=== PATIENT | female | born 1975 | race Two or more races ===

== ENCOUNTER 2024-05-07 05:33 | Inpatient (IN) | payer BC ==
[2024-05-03 07:49] VITALS: BMI 27.1
[2024-05-07] MEDS ORDERED: MIDAZOLAM HCL 2 MG/2 ML SINGLE DOSE VIAL ONE (10:54)
[2024-05-07] MEDS ORDERED: PROPOFOL 20 ML ONE (10:54)
[2024-05-07] MEDS ORDERED: ROCURONIUM BROMIDE 50 MG/5 ML SYRINGE ONE ×2 (10:54→11:58)
[2024-05-07] MEDS ORDERED: ceFAZolin SODIUM 1 GM VIAL ONE (11:23)
[2024-05-07] MEDS: ceFAZolin SODIUM 1 GM VIAL IVPB ONE (11:28)
[2024-05-07] MEDS ORDERED: TRANEXAMIC ACID 1000 MG/10 ML VIAL ONE (11:29)
[2024-05-07] MEDS ORDERED: ONDANSETRON 4 MG/2 ML VIAL ONE ×3 (11:35→14:58)
[2024-05-07] MEDS ORDERED: DEXAMETHASONE SOD PHOSPHATE 4 MG/1 ML VIAL ONE (11:35)
[2024-05-07] MEDS ORDERED: HYDROmorphone HCl 2 MG/ML VIAL ONE (12:04)
[2024-05-07] MEDS ORDERED: NEOSTIGMINE METHYLSULFATE 0.5 MG/1 ML - 10 ML MDV ONE (12:44)
[2024-05-07] MEDS ORDERED: GLYCOPYRROLATE 0.2 MG/1 ML VIAL ONE (12:45)
[2024-05-07] MEDS ORDERED: KETOROLAC TROMETHAMINE 30 MG/1 ML VIAL ONE (13:11)
[2024-05-07] MEDS: LACTATED RINGERS SOLUTION 1,000 ML IV SCH (14:08)
[2024-05-07] MEDS: CEFAZOLIN 2 GM in DEXTROSE 5%-WATER - 100 ML IVPB ONE (14:42)
[2024-05-07] MEDS: TRANEXAMIC ACID 1000 MG/10 ML VIAL IVPUSH ONE (14:42)
[2024-05-07] MEDS: ONDANSETRON 4 MG/2 ML VIAL IVPUSH PRN ×2 (15:00→18:44)
[2024-05-07] MEDS: CEFAZOLIN SODIUM 2 GM in DEXTROSE 5%-WATER 100 ML IVPB SCH (17:55)
[2024-05-07] MEDS ORDERED: CEFAZOLIN 2 GM/D5W 2 GM/50 ML ML IVPB SCH (18:00)
[2024-05-07] MEDS: ACETAMINOPHEN 500 MG TABLET (FP) PO PRN (22:41)
[2024-05-08 07:45] LABS: BASO % 0.1 % (0-2.0); EOS % 0.1 % (0-4.5); HEMATOCRIT 35.2 % (32.4-45.2); HEMOGLOBIN 11.7 GM/dL (10.7-15.3); LYMPH % 19.4 % (8-40); MCH 28.7 pg (25.7-33.7); MCHC 33.2 g/dl (32.0-36.0); MEAN CELL VOLUME 86.4 fl (80-96); MEAN PLT VOLUME 9.8 fl (7.5-11.1); MONO % 10.7 % (3.8-10.2); NEUT % 69.7 % (42.8-82.8); PLATELET COUNT 237 10^3/uL (134-434); RBC 4.08 M/mm3 (3.60-5.2); RDW 12.5 % (11.6-15.6); WHITE BLOOD COUNT 14.3 K/mm3 (4.0-10.0)
[2024-05-08 08:02] LABS: CALCIUM 8.9 mg/dL (8.5-10.1)
[2024-05-08 08:03] LABS: BLOOD UREA NITROGEN 6.6 mg/dL (7-18)
[2024-05-08 08:06] LABS: CREATININE 0.6 mg/dL (0.55-1.3)
[2024-05-08] MEDS: IBUPROFEN 600 MG TABLET (FP) PO PRN (08:42)
[2024-05-08] MEDS: oxyCODONE HCL 5 MG TABLET PO PRN (18:22)
[2024-05-08] MEDS: SIMETHICONE 80 MG TAB.CHEW (FP) PO PRN (20:25)
[2024-05-08] MEDS: DOCUSATE SODIUM 100 MG CAPSULE (FP) PO PRN (22:38)
[2024-05-09 09:50] VITALS: BP 130/75; PULSE 82; RESP 17; TEMP 98.2
== END 2024-05-09 09:45 | disposition home or self-care (01) | DRG 743 ==
LOC: J2C 05:33 → J3W 15:48
PROVIDERS: ADMIT Obstetrics & Gynecology; ATTEND Obstetrics & Gynecology
PROC: 0UT70ZZ Resection of Bilateral Fallopian Tubes, Open Approach (ICD-10-PCS; 2024-05-07)
PROC: 0UT90ZL Resection of Uterus, Supracervical, Open Approach (ICD-10-PCS; principal; 2024-05-07 10:00)
DX: D25.9 Leiomyoma of uterus, unspecified (principal); N92.0 Excessive and frequent menstruation with regular cycle; R10.2 Pelvic and perineal pain
CPT/HCPCS: 36415; 80053; 81025; 85025; 86850; 86900; 86901; 88305-TC; 88307-TC; 94010; 94760